=== PATIENT | male | born 2000 | race Caucasian/White ===

== ENCOUNTER 2025-04-25 20:58 | Emergency (ER) | payer MEDICAID ==
[~2025-04-25] VITALS: Ht 182.9 cm; Wt 99.2 kg
[2025-04-25 21:02] VITALS: O2SAT 98
[2025-04-25] MEDS: KETOROLAC 15MG/ML VIAL IM ONE (22:49)
[2025-04-25 23:36] LABS: BASOPHILS % 0.4 % (0.0-2.0); EOSINOPHILS % 2.1 % (0.0-5.0); HEMATOCRIT. 42.2 % (42.0-52.0); HEMOGLOBIN. 14.5 g/dL (14.0-18.0); LYMPHOCYTES % 28.9 % (20.0-50.0); MEAN PLATELET VOLUME 10.6 fl (7.4-10.4); MONOCYTES % 8.6 % (2.0-8.0); NEUTROPHILS % 60.0 % (40.0-76.0); PLATELET 191 x1000/uL (130-400); RED BLOOD CELL COUNT 4.93 mill/uL (4.7-6.1); RED CELL DISTRIBUTION WIDTH 13.2 % (11.6-14.6)
[2025-04-25 23:56] LABS: CREATININE 0.9 mg/dL (0.6-1.3); UREA NITROGEN BLOOD 11 mg/dL (9-23)
[2025-04-25 23:58] LABS: TROPONIN I HIGH SENSITIVITY < 4 ng/L (3.0-53)
[2025-04-26] MEDS ORDERED: NAPR-1176 MT (00:34)
[2025-04-26 00:42] VITALS: BP 143/89; PULSE 64; RESP 18; TEMP 36.6; O2SAT 98
== END 2025-04-26 00:48 | disposition home or self-care (01) ==
LOC: ER 20:58
DX: R06.02 Shortness of breath (principal); R51.9 Headache, unspecified; R07.89 Other chest pain; I10 Essential (primary) hypertension; Z79.1 Long term (current) use of non-steroidal anti-inflammatories (NSAID); Z20.822 Contact with and (suspected) exposure to COVID-19
CPT/HCPCS: 99285; 70450; 71045; 80048; 85025; 84484; 36415; 93005; 96372; J1885